=== PATIENT | female | born 1985 | race American Indian/Alaskan Native ===

== ENCOUNTER 2017-10-10 09:55 | Emergency (ER) | payer OTHER ==
[2017-10-10] MEDS ORDERED: TORADOL IM ONE (10:30)
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
[2017-10-10 10:56] VITALS: BP 116/81
== END 2017-10-10 10:59 | disposition home or self-care (01) ==
LOC: ED 09:55
DX: M54.9 Dorsalgia, unspecified (principal); F17.200 Nicotine dependence, unspecified, uncomplicated
CPT/HCPCS: 96372; 99282; J1885